=== PATIENT | male | born 1990 | race Caucasian/White ===

== ENCOUNTER 2017-04-10 09:44 | Emergency (ER) | payer MEDICAID ==
[~2017-04-10] VITALS: Ht 188 cm; Wt 4.5 kg
[2017-04-10 09:53] VITALS: BP 138/76
[2017-04-10] MEDS ORDERED: HYDROcodone/APAP 5/325 TABLET PO ONE (10:30)
[2017-04-10] MEDS ORDERED: HYDROcodone/APAP 5/325 TABLET ONE (10:49)
== END 2017-04-10 12:04 | disposition home or self-care (01) ==
LOC: ED 11:45
DX: S93.612A Sprain of tarsal ligament of left foot, initial encounter (principal); F17.200 Nicotine dependence, unspecified, uncomplicated; F12.10 Cannabis abuse, uncomplicated; W18.39XA Other fall on same level, initial encounter; Y93.89 Activity, other specified; Y99.8 Other external cause status; Y92.89 Other specified places as the place of occurrence of the external cause
CPT/HCPCS: 99284

== ENCOUNTER 2019-07-17 14:13 | Emergency (ER) | payer SELFPAY ==
[~2019-07-17] VITALS: Ht 170.2 cm; Wt 80.0 kg
--- NOTE | 2019-07-17 14:45 | NUR ---
PT TO CARD MONITOR, CONT PULSE OX, NIBP, END ETCO2. PT ETCO2 CURRENTLY 28-30, PT NOW REQUIRING 6L O2. MD UPDATED. CODING DIRECTOR MADE AWARE
--- NOTE | 2019-07-17 14:46 | NUR ---
PT DANAY ZARAGOZA, PER PT REPORT PT ACCIDENTLY TOOK PERCOCET, PT REQUIRING BVM ON EMS ARRIVAL. PER EMS REPORT AMADA FOUND PT ON THE GROUND IN HOME AND WAS NOT BREATHING THEY INITIATED CPR AND CALLED EMS, WHO THEN MAINTAINED PTS AIRWAY WITH MANUAL JAW THRUST AND PT REQUIRED BVM, Addendum: 07/17/19 at 1447 by Clari PT RECIEVED 2MG OF NARCAN AND PT THEN AWOKE. GCS 15 ON ARRIVAL. PT WITH FSBG OF 464 PER EMS REPORT. PT RECEIVING IV FLUIDS. Addendum: 07/17/19 at 1500 by Clari CLINICAL SCREEN PERFORMED ON PT, CSS COMPLETED, PT DENIES SI/SA OR HX OF. PT STATES "I HAVE A BEAUTIFUL LITTLE GIRL AT HOME, I WOULDNT DO THAT" PT CLAIMS HE HAD TRIED TO TAKE AN ALLERGY MEDICATION AND THINKS HE MAY HAVE TAKEN HIS FRIENDS PERCOCET INSTEAD BY ACCIDENT
[2019-07-17] MEDS ORDERED: SODIUM CHLORIDE FLUSH 10ML SYR IVF ONE (15:00)
--- NOTE | 2019-07-17 15:21 | NUR ---
EKG COMPLETED AND SHOWED TO RODNEY LOPEZ IN ATRIAL FIBRILLATION
[2019-07-17 15:27] LABS: MEAN CORPUSCULAR HGB CONC 33.7 g/dL (33.2-36.2); MEAN CORPUSCULAR VOLUME 91.8 fL (81-97); MEAN PLATELET VOLUME 7.5 fL (7.4-10.4); PLATELET COUNT 253 x10^3/uL (130-400); RED BLOOD COUNT 5.12 x10^6/uL (4.38-5.82); RED CELL DISTRIBUTION WIDTH 13.1 % (9.4-14.8)
[2019-07-17 15:34] LABS: ALBUMIN 4.3 g/dL (3.4-5.0); ANION GAP 8 mmol/L (5-15); CALCIUM 8.2 mg/dL (8.5-10.1); CHLORIDE 103 mmol/L (98-107)
[2019-07-17 15:41] LABS: ALANINE AMINOTRANSFERASE 44 U/L (12-78); ALKALINE PHOSPHATASE 54 U/L (45-117); BILIRUBIN,TOTAL 0.5 mg/dL (0.2-1.0); CREATININE 1.07 mg/dL (0.7-1.3); TROPONIN I < 0.015 ng/mL (0.000-0.045)
[2019-07-17 15:59] LABS: MD YES
[2019-07-17 16:01] LABS: BANDS%(MANUAL) 26 % (0-7); LYMPH#(MANUAL) 0.74 x10^3/uL (1-3.4); LYMPHS% (MANUAL) 3 % (22-44); METAMYELOCYTES# (MANUAL) 0.25 x10^3/uL (0-0); METAMYELOCYTES% (MANUAL) 1 % (0-1); MONOS#(MANUAL) 0.98 x10^3/uL (0.3-2.7); MONOS% (MANUAL) 4 % (2-9); SEG#(MANUAL) 16.24 x10^3/uL (1.8-6.8); SEGS% (MANUAL) 66 % (42-75)
[2019-07-17 16:02] LABS: <PLATELET ESTIMATE> ADEQUATE; <PLT MORPHOLOGY> NORMAL PLT MORPH; <RBC MORPHOLOGY> NORMAL
[2019-07-17] MEDS ORDERED: SODIUM CHLORIDE 0.9% 1,000 ML IV ONE (16:16)
--- NOTE | 2019-07-17 16:20 | NUR ---
ORDERS RECIEVED FOR ABX, AWAITING BC TO BE DRAWN
[2019-07-17 16:25] VITALS: BP 114/73
[2019-07-17] MEDS ORDERED: CEFTRIAXONE PMX 1GM/50ML 50 ML IV ONE (16:30)
[2019-07-17] MEDS ORDERED: CEFTRIAXONE PMX 1GM/50ML 50 ML ONE (16:55)
--- NOTE | 2019-07-17 17:05 | NUR ---
REPORT TO RECIEVING JOVAN MARKHAM
--- NOTE | 2019-07-17 17:34 | NUR ---
PT NOW REFUSING TO BE ADMITTED, PT WOULD LIKE TO BE DISCHARGED HOME. PT AMBULATED TO BR WITHOUT SUPP O2 AND WAS SATING 88% ABOUT ONE HOUR AGO. PT AMBULATED PER MD REQUEST AND NOW SATING 91% RA. UPDATED.
--- NOTE | 2019-07-17 18:20 | NUR ---
PT GIVEN AMA PAPERWORK, STATES AWARE OF POSSIBLE OUTCOME OF NOT BEING ADMITTED FOR TREATMENT AND OBSERVATION. PIVS REMOVED, ALL BELONGINGS VERIFIED WITH PT ON DC. PT AMBULATORY WITH FAMILY ON DISCHARGE.
== END 2019-07-17 18:27 | disposition left against medical advice (07) ==
LOC: ED 16:03 → EDIP 16:20 → UNDOADMIN 16:20 → ED 18:27
DX: T40.2X1A Poisoning by other opioids, accidental (unintentional), initial encounter (principal); D72.825 Bandemia; I48.91 Unspecified atrial fibrillation; Z72.89 Other problems related to lifestyle
CPT/HCPCS: 36415; 71045; 80053; 83605; 83880; 84484; 85025; 87040; 93005; 96365; 99284; J0696